=== PATIENT | female | born 1950 | race Native Hawaiian/Other Pacific Islander ===

== ENCOUNTER 2017-01-30 16:52 | Emergency (ER) | payer MEDICARE, OTHER ==
[~2017-01-30] VITALS: Ht 165.1 cm; Wt 90.7 kg
[~2017-01-30 16:52] MED LIST: ASPI81CH43; CELE200C; CYCL-181; ERGO1CAP6; PREG25CA; TRAM50TA2; TRIA25CA
[2017-01-30] MEDS ORDERED: cloNIDine HCL 0.1 MG TAB ONE (17:00)
[2017-01-30] MEDS ORDERED: cloNIDine HCL 0.1 MG TAB PO ONE (17:15)
[2017-01-30 17:43] LABS: Basophils # (auto) 0 uL; Basophils % (auto) 0.6 % (0.0-2.0); CONDITION Y; DEFINITIVE SEE PRINTOUT; Eosinophils # (auto) 0.2 uL; Eosinophils % (auto) 3.6 % (0.0-7.0); Hematocrit 39.5 % (36.0-46.0); Hemoglobin 12.9 g/dL (12.2-16.2); Lymphocytes # (auto) 1.7 uL; Lymphocytes % (auto) 31.5 % (10.0-50.0); Mean Corpuscular Hemoglobin 26.2 pg (28.0-32.0); Mean Corpuscular Hgb Conc. 32.6 g/dL (32.0-36.0); Mean Corpuscular Volume 80.3 fL (80.0-100.0); Mean Platelet Volume 8.4 fL (7.4-10.4); Monocytes # (auto) 0.6 uL; Monocytes % (auto) 11.7 % (0.0-12.0); Neutrophils # (auto) 2.8 uL; Neutrophils % (auto) 52.6 % (37.0-80.0); Platelet Count (auto) 344 10^3/uL (140-450); Red Cell Distribution Width 15.4 % (11.6-16.0); White Blood Cell 5.3 10^3/uL (4.4-10.8)
[2017-01-30 18:03] LABS: Albumin 3.9 g/dL (3.4-5.0); BUN/Creatinine Ratio 15.3; Bilirubin, Total 0.3 mg/dL (0.2-1.0); Potassium 3.1 mmol/L (3.5-5.1); Total Protein 7.5 g/dL (6.4-8.2)
[2017-01-30 22:36] VITALS: BP 138/75
[2017-01-30] MEDS ORDERED: SODIUM CHLORIDE 0.9% 1,000 ML IV ONE (22:45)
[2017-01-30] MEDS ORDERED: MECLIZINE HCL 25 MG TAB PO ONE (23:00)
== END 2017-01-30 23:46 | disposition home or self-care (01) ==
LOC: ER 16:52
DX: R42 Dizziness and giddiness (principal); I10 Essential (primary) hypertension; M19.90 Unspecified osteoarthritis, unspecified site; Z87.891 Personal history of nicotine dependence; R51 Headache; H92.03 Otalgia, bilateral
CPT/HCPCS: 36415; 70450; 71020; 80053; 85025; 93005; 94761; 96360; 99285; J7030; J8597

== ENCOUNTER → 2017-02-13 | Outpatient (CLI) | payer MEDICARE, OTHER ==
[2017-02-13 08:32] LABS: Albumin 3.5 g/dL (3.4-5.0); BUN/Creatinine Ratio 18.9; Bilirubin, Total 0.4 mg/dL (0.2-1.0); Calcium 8.9 mg/dL (8.5-10.1); Potassium 3.6 mmol/L (3.5-5.1); Total Protein 7.5 g/dL (6.4-8.2); Uric Acid 9.4 mg/dL (2.6-6.0)
== END | disposition home or self-care (01) ==
LOC: LAB 07:16
PROVIDERS: ATTEND Family Medicine
DX: R60.9 Edema, unspecified (principal); E87.6 Hypokalemia; I10 Essential (primary) hypertension
CPT/HCPCS: 36415; 80053; 84550

== ENCOUNTER → 2017-04-22 | Outpatient (CLI) | payer MEDICARE, OTHER ==
[2017-04-22 08:45] LABS: Albumin 3.9 g/dL (3.4-5.0); BUN/Creatinine Ratio 17.9; Bilirubin, Total 0.4 mg/dL (0.2-1.0); Calcium 8.8 mg/dL (8.5-10.1); Potassium 3.4 mmol/L (3.5-5.1); Uric Acid 4.1 mg/dL (2.6-6.0)
== END | disposition home or self-care (01) ==
LOC: LAB 08:03
PROVIDERS: ATTEND Family Medicine
DX: I10 Essential (primary) hypertension (principal); M10.071 Idiopathic gout, right ankle and foot; Z79.899 Other long term (current) drug therapy
CPT/HCPCS: 36415; 80053; 82306; 84550

== ENCOUNTER → 2017-05-22 | Outpatient (CLI) | payer MEDICARE, OTHER ==
[2017-05-22 11:52] LABS: Albumin 3.5 g/dL (3.4-5.0); BUN/Creatinine Ratio 16.7; Bilirubin, Total 0.4 mg/dL (0.2-1.0); Calcium 8.8 mg/dL (8.5-10.1); Potassium 3.1 mmol/L (3.5-5.1); Total Protein 7.1 g/dL (6.4-8.2)
[2017-05-22 11:53] LABS: Hepatitis B Surface Antibody Negative
== END | disposition home or self-care (01) ==
LOC: LAB 09:58
PROVIDERS: ATTEND Family Medicine
DX: E87.6 Hypokalemia (principal); R79.89 Other specified abnormal findings of blood chemistry
CPT/HCPCS: 36415; 80053; 86704; 86706; 86708; 86803; 87340

== ENCOUNTER 2018-06-11 10:31 | Emergency (ER) | payer MEDICARE, OTHER ==
[~2018-06-11] VITALS: Ht 167.6 cm; Wt 90.7 kg
[2018-06-11 10:53] VITALS: BP 145/92
[2018-06-11] MEDS ORDERED: cefTRIAXone SOD 1,000 MG VL IM ONE (11:45)
== END 2018-06-11 12:38 | disposition home or self-care (01) ==
LOC: ER 10:35
DX: J02.9 Acute pharyngitis, unspecified (principal); H66.93 Otitis media, unspecified, bilateral; I10 Essential (primary) hypertension; M19.90 Unspecified osteoarthritis, unspecified site; Z90.710 Acquired absence of both cervix and uterus; Z87.891 Personal history of nicotine dependence
CPT/HCPCS: 71046; 96372; 99284; J0696

== ENCOUNTER → 2018-10-14 | Outpatient (CLI) | payer MEDICARE, OTHER ==
[2018-10-14 09:15] LABS: Basophils # (auto) 0.1 uL; Eosinophils # (auto) 0.2 uL; Monocytes # (auto) 0.4 uL; Neutrophils # (auto) 2.2 uL
[2018-10-14 09:17] LABS: Basophils % (auto) 2.5 % (0.0-2.0); Eosinophils % (auto) 4.1 % (0.0-7.0); Hematocrit 38.8 % (36.0-46.0); Hemoglobin 12.4 g/dL (12.2-16.2); Lymphocytes # (auto) 1.2 uL; Lymphocytes % (auto) 28.9 % (10.0-50.0); Mean Corpuscular Hemoglobin 25.7 pg (28.0-32.0); Mean Corpuscular Hgb Conc. 31.9 g/dL (32.0-36.0); Mean Corpuscular Volume 80.4 fL (80.0-100.0); Neutrophils % (auto) 54.5 % (37.0-80.0); Nucleated Red Blood Cells % 0.1 %; Platelet Count (auto) 306 10^3/uL (140-450); Red Blood Cells 4.82 10^6/uL (4.0-5.20); Red Cell Distribution Width 15.6 % (11.8-14.3); Urine Bacteria NONE SEEN /hpf (None Seen); Urine Blood Negative /uL (Negative); Urine Specific Gravity 1.012 (1.001-1.035); Urine WBC 1 /hpf (0 - 5)
[2018-10-14 09:41] LABS: Potassium 3.6 mmol/L (3.5-5.1)
[2018-10-14 09:49] LABS: Albumin 3.7 g/dL (3.4-5.0); BUN/Creatinine Ratio 12.8; Bilirubin, Total 0.3 mg/dL (0.2-1.0); Calcium 9.1 mg/dL (8.5-10.1); Total Protein 7.5 g/dL (6.4-8.2); Uric Acid 7.1 mg/dL (2.6-6.0)
== END | disposition home or self-care (01) ==
LOC: LAB 08:42
PROVIDERS: ATTEND Family Medicine
DX: E78.2 Mixed hyperlipidemia (principal); I10 Essential (primary) hypertension; E66.09 Other obesity due to excess calories; E87.2 Acidosis; Z79.899 Other long term (current) drug therapy; Z87.891 Personal history of nicotine dependence
CPT/HCPCS: 36415; 80053; 80061; 81001; 82306; 82607; 83036; 84443; 84550; 85025

== ENCOUNTER → 2019-09-07 | Outpatient (CLI) | payer MEDICARE, OTHER ==
[2019-09-07 07:53] LABS: Urine WBC None Seen /hpf (0 - 5)
[2019-09-07 08:03] LABS: Eosinophils # (auto) 0.2 uL; Eosinophils % (auto) 5.2 % (0.0-7.0); Lymphocytes # (auto) 1.1 uL; Monocytes # (auto) 0.3 uL; Neutrophils # (auto) 1.9 uL; White Blood Cell 3.6 10^3/uL (4.4-10.8)
[2019-09-07 08:05] LABS: Basophils # (auto) 0.1 uL; Hematocrit 37.7 % (36.0-46.0); Lymphocytes % (auto) 31.8 % (10.0-50.0); Mean Corpuscular Hemoglobin 26.1 pg (28.0-32.0); Mean Corpuscular Hgb Conc. 31.9 g/dL (32.0-36.0); Mean Corpuscular Volume 81.9 fL (80.0-100.0); Monocytes % (auto) 9.1 % (0.0-12.0); Neutrophils % (auto) 51.9 % (37.0-80.0); Nucleated Red Blood Cells % 0.1 %; Platelet Count (auto) 283 10^3/uL (140-450)
[2019-09-07 08:19] LABS: Urine Bacteria NONE SEEN /hpf (None Seen); Urine Blood Negative /uL (Negative); Urine Specific Gravity 1.009 (1.001-1.035)
[2019-09-07 08:27] LABS: Potassium 3.5 mmol/L (3.5-5.1)
[2019-09-07 08:35] LABS: Albumin 3.6 g/dL (3.4-5.0); BUN/Creatinine Ratio 13.5; Bilirubin, Total 0.3 mg/dL (0.2-1.0); Calcium 8.9 mg/dL (8.5-10.1); Total Protein 7.4 g/dL (6.4-8.2); Uric Acid 5.1 mg/dL (2.6-6.0)
== END | disposition home or self-care (01) ==
LOC: LAB 07:23
PROVIDERS: ATTEND Family Medicine
DX: E78.2 Mixed hyperlipidemia (principal); I10 Essential (primary) hypertension; E55.9 Vitamin D deficiency, unspecified; E53.8 Deficiency of other specified B group vitamins; E66.09 Other obesity due to excess calories; R42 Dizziness and giddiness; Z87.39 Personal history of other diseases of the musculoskeletal system and connective tissue
CPT/HCPCS: 36415; 80053; 80061; 81001; 82306; 82607; 84443; 84550; 85025

== ENCOUNTER 2020-03-15 10:16 | Inpatient (IN) | payer BC, OTHER ==
[~2020-03-15] VITALS: Ht 165.1 cm; Wt 89.4 kg
[2020-03-15 10:53] LABS: Basophils # (auto) 0 10 ^3/uL (0-0.2); Basophils % (auto) 0.4 % (0.0-2.0); Eosinophils # (auto) 0.2 10 ^3/uL (0-0.8); Eosinophils % (auto) 4.5 % (0.0-7.0); Hematocrit 45.3 % (36.0-46.0); Hemoglobin 14.8 g/dL (12.2-16.2); Lymphocytes # (auto) 1.4 10 ^3/uL (0.4-5.4); Lymphocytes % (auto) 30.9 % (10.0-50.0); Mean Corpuscular Hemoglobin 27.8 pg (28.0-32.0); Mean Corpuscular Hgb Conc. 32.7 g/dL (32.0-36.0); Mean Corpuscular Volume 85.1 fL (80.0-100.0); Monocytes # (auto) 0.5 10 ^3/uL (0-1.3); Monocytes % (auto) 10.4 % (0.0-12.0); Neutrophils # (auto) 2.4 10 ^3/uL (1.6-8.6); Neutrophils % (auto) 53.8 % (37.0-80.0); Nucleated Red Blood Cells % 0.1 %; Platelet Count (auto) 267 10^3/uL (140-450); Red Blood Cells 5.33 10^6/uL (4.0-5.20); Red Cell Distribution Width 15.5 % (11.8-14.3); White Blood Cell 4.5 10^3/uL (4.4-10.8)
[2020-03-15 11:09] LABS: Anion Gap 3 (5-15); Blood Urea Nitrogen 12 mg/dL (7-18); Calcium 8.9 mg/dL (8.5-10.1); Carbon Dioxide 29 mmol/L (21-32); Chloride 109 mmol/L (98-107); Glucose 98 mg/dL (74-106); Potassium 3.7 mmol/L (3.5-5.1); Sodium 141 mmol/L (136-145)
[2020-03-15 11:14] LABS: Alanine Aminotransferase 26 U/L (13-56); Alkaline Phosphatase 145 U/L (45-117); Aspartate Aminotransferase 35 U/L (15-37); BUN/Creatinine Ratio 11.4; Bilirubin, Total 0.4 mg/dL (0.2-1.0); GFR African American 67 mL/min; GFR Non-African American 55 mL/min; Total Protein 7.6 g/dL (6.4-8.2)
[2020-03-15] MEDS ORDERED: SODIUM CHLORIDE 0.9% 1,000 ML IV ONE (14:50)
[2020-03-15] MEDS ORDERED: ASPirin 81 mg TAB PO ONE (15:00)
[2020-03-15] MEDS ORDERED: cloNIDine HCL 0.1 MG TAB PO ONE (17:00)
[2020-03-15 18:51] LABS: Urine Bacteria NONE SEEN /hpf (None Seen); Urine Blood Negative /uL (Negative); Urine Specific Gravity 1.005 (1.001-1.035); Urine WBC 2 /hpf (0 - 5)
[2020-03-15] MEDS ORDERED: NITROGLYCERIN 0.4 MG SL TAB SL PRN (21:45)
[2020-03-15] MEDS ORDERED: TEMAZEPAM 15 MG CAP PO PRN (21:45)
[2020-03-15] MEDS ORDERED: ACETAMINOPHEN 325 MG TAB PO PRN (21:45)
[2020-03-15] MEDS ORDERED: MORPHINE SULF INJ 2 MG/ML SYRINGE 1ML IV PRN (21:45)
[2020-03-15] MEDS ORDERED: ONDANSETRON HCL 4 MG/2 ML VIAL IV PRN (21:45)
[2020-03-15] MEDS: FAMOTIDINE 20 MG TAB PO SCH (22:00)
[2020-03-15] MEDS: ATORVASTATIN 20 MG TAB PO SCH (22:00)
[2020-03-15 23:50] VITALS: BP 118/91
--- NOTE | 2020-03-15 23:50 | NUR ---
Patient Brought to Unit from ER w/ all Belongings Patient is AOx4 w/ no complaints of pain. No s/s of distress or SOB at this time. Patient able to ambulate to bathroom without distress or dizziness. Patient bed is locked in lowest position w/ HOB at 30 degrees. Call light is within reach. Will continue to monitor.
[2020-03-16 05:20] VITALS: BP 122/66
[2020-03-16 07:08] LABS: Basophils # (auto) 0.1 10 ^3/uL (0-0.2); Basophils % (auto) 1.6 % (0.0-2.0); Eosinophils # (auto) 0.2 10 ^3/uL (0-0.8); Eosinophils % (auto) 4.2 % (0.0-7.0); Hematocrit 40.2 % (36.0-46.0); Hemoglobin 13.3 g/dL (12.2-16.2); Lymphocytes # (auto) 1.2 10 ^3/uL (0.4-5.4); Lymphocytes % (auto) 26.8 % (10.0-50.0); Mean Corpuscular Hemoglobin 28.4 pg (28.0-32.0); Mean Corpuscular Hgb Conc. 33.2 g/dL (32.0-36.0); Mean Corpuscular Volume 85.7 fL (80.0-100.0); Monocytes # (auto) 0.4 10 ^3/uL (0-1.3); Monocytes % (auto) 9.7 % (0.0-12.0); Neutrophils # (auto) 2.6 10 ^3/uL (1.6-8.6); Neutrophils % (auto) 57.7 % (37.0-80.0); Nucleated Red Blood Cells % 0.1 %; Platelet Count (auto) 231 10^3/uL (140-450); White Blood Cell 4.4 10^3/uL (4.4-10.8)
[2020-03-16 07:24] LABS: Calcium 8.3 mg/dL (8.5-10.1); Potassium 3.5 mmol/L (3.5-5.1)
[2020-03-16 07:28] LABS: BUN/Creatinine Ratio 17.2
[2020-03-16] MEDS ORDERED: ADENOSINE 72 MG in GIVE UN-DILUTED 0 ML IV ONE (08:30)
[2020-03-16] MEDS: TRIAMTERENE/HCTZ 75/50MG TABLET PO SCH (08:45)
[2020-03-16] MEDS: PREGABALIN 25 MG CAP PO SCH (08:45)
[2020-03-16] MEDS: ASPirin 81 mg TAB PO SCH (08:45)
[2020-03-16] MEDS: FAMOTIDINE 20 MG TAB PO SCH ×2 (08:45→21:33)
[2020-03-16 09:00] VITALS: BP 122/83
--- NOTE | 2020-03-16 09:02 | NUR ---
IV INSERTION: IV INSERTED TO LFA 20 GAUGE. FIRST ATTEMPT. PATIENT TOLERATED WELL.
[2020-03-16 10:13] LABS: Cholesterol 160 mg/dL (< 200)
[2020-03-16 10:16] LABS: HDL Cholesterol 59 mg/dL (40-59); LDL Cholesterol 94 mg/dL (< 100); Triglycerides 92 mg/dL (< 150)
[2020-03-16 12:53] VITALS: BP 159/85
[2020-03-16 16:39] VITALS: BP 133/78
--- NOTE | 2020-03-16 19:16 | NUR ---
endorsed care to DANIAL GARRETT
--- NOTE | 2020-03-16 19:30 | NUR ---
Opening Shift Note Patient is alert and oriented. Patient has no s/s of distress or SOB. Patient has no complaints of pain. Discussed POC w/ patient and patient verbally agreed to understanding. Call light is within reach, HOB at 30 degrees, side rails up x2, and bed locked in lowest position. Will continue to monitor.
[2020-03-16] MEDS: ATORVASTATIN 20 MG TAB PO SCH (21:33)
[2020-03-16 22:00] VITALS: BP 154/90
[2020-03-17 05:00] VITALS: BP 153/78
--- NOTE | 2020-03-17 07:00 | NUR ---
Care endorsed to Day Shift RN.
[2020-03-17 08:34] VITALS: BP 127/81
[2020-03-17] MEDS: PREGABALIN 25 MG CAP PO SCH (10:00)
[2020-03-17] MEDS: TRIAMTERENE/HCTZ 75/50MG TABLET PO SCH (10:00)
[2020-03-17] MEDS ORDERED: FELO2.5T3 PO (10:59)
[2020-03-17] MEDS ORDERED: ALLO100T PO (10:59)
[2020-03-17] MEDS ORDERED: FERR-20 PO (10:59)
[2020-03-17] MEDS ORDERED: MECL12.514 PO (10:59)
[2020-03-17] MEDS ORDERED: MULTTAB99 GT (10:59)
[2020-03-17] MEDS: FAMOTIDINE 20 MG TAB PO SCH (11:00)
[2020-03-17] MEDS: ASPirin 81 mg TAB PO SCH (11:08)
--- NOTE | 2020-03-17 11:12 | NUR ---
Left message with Dr. Moffett regarding him noting the final test results for the patients Stress test and Echo done yesterday so patient can possibly get discharged today. Awaiting a call or message back.
[2020-03-17 12:42] VITALS: BP 160/83
--- NOTE | 2020-03-17 14:22 | NUR ---
assessment Patient is a 69 year old female who is alert and oriented. Patients cognitive abilities are intact. Prior to admission patient lived home with her and family and functioned independently. Patient informed me she is able to care for her own ADLs. Per patient she will return home to her prior living arrangements post discharge and family will transport her home. Patient informed me her PCP is Dr. Leonides Lemus. Patient informed me she called 911 due to chest pain. Patient has no safety issues regarding returning home on discharge. Patient has no post discharge needs identified at this time. I informed patient she has a right to speak to a social media specialist regarding all care. I informed patient she has a right to participate in any and all discharge planning. Patient does not have a POA and advanced directive. I have offered patient information on POA and advanced directives. I informed the patient the advantages and benefits of having an Advanced Directive. Patient verbalized understanding and agreed to discharge plan. Addendum: 03/17/20 at 1433 by Nasrin HAJI Amended: Links added.
[2020-03-17 15:28] VITALS: BP 127/81
--- NOTE | 2020-03-17 16:52 | NUR ---
Discharge instructions given as ordered. Encourage to follow up with Primary care provider Dr. Jane Lemus as instructed. All questions and concerns addressed. Patient verbalized understanding. Medication reconciliation form completed and copy given to patient. IV removed with catheter intact, pressure dressing applied. Telemetry unit returned to ICU. Patient taken to vehicle via wheelchair with all personal belongings, accompanied by staff and family member. No distress noted at time of departure.
== END 2020-03-17 16:50 | disposition home or self-care (01) | DRG 311 ==
LOC: ER 10:16 → EDBD 10:16 → EDUNIT# 10:16 → TELE 10:17 → TELE-WESTW 23:19
PROVIDERS: ADMIT Nurse Practitioner; ATTEND Internal Medicine
DX: I20.0 Unstable angina (principal); I10 Essential (primary) hypertension; G20 Parkinson's disease; E66.9 Obesity, unspecified; M10.9 Gout, unspecified; M19.90 Unspecified osteoarthritis, unspecified site; G47.00 Insomnia, unspecified; R00.1 Bradycardia, unspecified; Z68.32 Body mass index [BMI] 32.0-32.9, adult; Z90.710 Acquired absence of both cervix and uterus; Z82.3 Family history of stroke; Z82.49 Family history of ischemic heart disease and other diseases of the circulatory system; Z79.899 Other long term (current) drug therapy
CPT/HCPCS: 36415; 71046; 78452; 80048; 80053; 80061; 81001; 83036; 83735; 84443; 84484; 85025; 93005; 93017; 93306; G0378; J0153

== ENCOUNTER → 2021-07-17 | Outpatient (CLI) | payer MEDICARE ==
[~2021-07-17] MED LIST changes: +ALLO100T PO; -ASPI81CH43; -CELE200C; -CYCL-181; -ERGO1CAP6; +FELO2.5T3 PO; +FERR-20 PO; +MECL12.514 PO; +MULTTAB99 GT; -PREG25CA; -TRAM50TA2; -TRIA25CA
== END | disposition home or self-care (01) ==
LOC: XYW 13:19
PROVIDERS: ATTEND Family Medicine
DX: I08.2 Rheumatic disorders of both aortic and tricuspid valves (principal); I11.9 Hypertensive heart disease without heart failure
CPT/HCPCS: 93306

== ENCOUNTER → 2021-07-24 | Outpatient (CLI) | payer MEDICARE | END | disposition home or self-care (01) | LOC: XYW 12:47 | PROVIDERS: ATTEND Family Medicine | DX: I67.82 Cerebral ischemia (principal); I63.9 Cerebral infarction, unspecified; R94.02 Abnormal brain scan; I72.9 Aneurysm of unspecified site | CPT/HCPCS: 70496; Q9967 ==